=== PATIENT | male | born 1965 | race Caucasian/White ===

== ENCOUNTER 2017-06-12 12:19 | Observation (INO) | payer OTHER ==
[~2017-06-12] VITALS: Ht 172.7 cm; Wt 96.6 kg
[~2017-06-12 12:19] MED LIST: ALLOPURINOL300 MG PO; CITALOPRAM HBR20 MG PO; COLCHICINE,COL0.6 MG PO; Ecotrin PO; FLONASE16 G1 BOTH NARES; LEVOFLOXACIN500 MG PO; LOTENSIN10 MG PO; NEXIUM10 MG; NEXIUM40 MG PO; NORCO 5/3251 TABLET PO; Naprosyn PO; celeXA PO
[2017-06-12 13:00] LABS: HEMATOCRIT 44.3 % (38.0-50.0); HEMOGLOBIN 15.6 G/DL (12.5-16.6); MCH 31.1 PG (29.0-34.0); MCHC 35.2 G/DL (30.0-36.0); MCV 88.4 FL (86-99); PLATELET COUNT 171 K/uL (156-360); RBC DIS.WIDTH-CV 12.5 % (11.8-14.6); RBC DIS.WIDTH-SD 40.7 % (39-53); RED BLOOD COUNT 5.01 M/uL (4.00-5.50); WHITE BLOOD COUNT 5.1 K/uL (4.1-10.2)
[2017-06-12 13:08] LABS: ALBUMIN 4.3 g/dL (3.2-4.8)
[2017-06-12 13:09] LABS: CHLORIDE 105 mEq/L (99-109); POTASSIUM 4.2 mEq/L (3.7-5.4); SODIUM 138 mEq/L (136-147)
[2017-06-12 13:11] LABS: GLUCOSE 101 mg/dL (70-99); TOTAL PROTEIN 6.8 g/dL (6.4-8.3)
[2017-06-12 13:13] LABS: TOTAL BILIRUBIN 0.8 mg/dL (0.0-1.0)
[2017-06-12 13:14] LABS: ALKALINE PHOSPHATASE 66 IU/L (3-129)
[2017-06-12 13:15] LABS: CREATININE 1.4 mg/dL (0.6-1.3); GFR ESTIMATE (CALCULATED) 57 mL/min/ (58.99-99999)
[2017-06-12 13:16] LABS: AST (GOT) 25 IU/L (2-34); UREA NITROGEN (BUN) 15 mg/dL (9-23)
[2017-06-12 13:18] LABS: ALT (GPT) 35 IU/L (3-49)
[2017-06-12 13:20] LABS: TROP-I INTERPRETATION NEGATIVE; TROPONIN-I < 0.01 ng/mL (0.0-0.30)
[2017-06-12 14:56] LABS: BACTERIA RARE /HPF; EPITHELIAL CELLS NONE SEEN /HPF; MUCUS NONE SEEN /LPF; RED BLOOD CELLS 0-5 /HPF (0-5); WHITE BLOOD CELLS 0-5 /HPF (0-5)
[2017-06-12] MEDS ORDERED: BACTRIM,SEPT1 TABLET PO (17:04)
[2017-06-12] MEDS ORDERED: ZYRTEC10 M3 PO (17:04)
[2017-06-12 17:57] LABS: D-DIMER ELISA < 150.00 ng/mLDDU (<230)
[2017-06-12 18:54] LABS: THYROTROPIN (TSH) 1.2 MIU/L (0.4-5.5)
[2017-06-12 22:19] VITALS: BP 114/70
[2017-06-13 00:02] VITALS: BP 118/69
[2017-06-13 00:24] LABS: BENZODIAZEPINES, URINE SCREEN Negative (200 ng/mL)
[2017-06-13 04:31] VITALS: BP 115/71
[2017-06-13 05:56] LABS: ALBUMIN 3.9 G/DL (3.2-4.8); ALKALINE PHOSPHATASE 51 IU/L (3-129); ALT (GPT) 27 IU/L (3-49); AST (GOT) 19 IU/L (2-34); CHLORIDE 105 MEQ/L (99-109); CREATININE 1.4 MG/DL (0.6-1.3); DIRECT BILIRUBIN 0.1 mg/dL (0.0-0.3); GFR ESTIMATE (CALCULATED) 57 mL/min/ (58.99-99999); GLUCOSE 97 mg/dL (70-99); POTASSIUM 4.1 MEQ/L (3.7-5.4); SODIUM 139 MEQ/L (136-147); TOTAL BILIRUBIN 0.6 MG/DL (0.0-1.0); TOTAL PROTEIN 5.8 G/DL (6.4-8.3); UREA NITROGEN (BUN) 14 mg/dL (9-23)
[2017-06-13 07:30] VITALS: BP 133/76
[2017-06-13 09:28] LABS: HEMOGLOBIN A1c (GLYCOHEMOGLOB) 5.3 % (Below 5.7)
[2017-06-13 11:09] VITALS: BP 120/67
[2017-06-13] MEDS ORDERED: PRAVACHOL40 MG PO (14:16)
[2017-06-13 15:17] VITALS: BP 113/77
== END 2017-06-13 17:33 | disposition home or self-care (01) ==
LOC: EME 12:19 → EDOF 16:55 → 4SOUTH 16:55 → EDOF 16:55 → ENRESERV 17:05 → 4SOUTH 21:57
PROVIDERS: Emergency Medicine; Hospitalist
DX: R55 Syncope and collapse (principal); K21.9 Gastro-esophageal reflux disease without esophagitis; R53.1 Weakness; J32.9 Chronic sinusitis, unspecified; S01.21XA Laceration without foreign body of nose, initial encounter; W07.XXXA Fall from chair, initial encounter; Z82.49 Family history of ischemic heart disease and other diseases of the circulatory system; Z82.3 Family history of stroke; F17.220 Nicotine dependence, chewing tobacco, uncomplicated; M10.9 Gout, unspecified; Z79.82 Long term (current) use of aspirin; Z88.1 Allergy status to other antibiotic agents; Z88.5 Allergy status to narcotic agent; Z88.6 Allergy status to analgesic agent
CPT/HCPCS: 70450; 70551; 71046; 80048; 80053; 80076; 80306 90; 81015; 82948; 83036; 84443; 84484; 85027; 85379; 93005; 93306; 93880; 99281; 99285; G0378; J7030